=== PATIENT | male | born 1960 | race Caucasian/White ===

== ENCOUNTER 2021-07-13 07:03 | Day surgery (SDC) | payer OTHER ==
[~2021-07-13] VITALS: Ht 170.2 cm; Wt 73.0 kg
[2021-07-13 07:25] VITALS: BP 119/65
--- NOTE | 2021-07-13 07:25 | NUR ---
PATIENT AMBULATORY TO ROOM 277 WITH STEADY GAIT ACCOMPANIED BY ANR NURSE SEAN. PATIENT IS ALERTAND OREINTED X3. ADMISSION ASSESSMENT COMPLETED AT THIS TIME. VS OBTAINED. DR OSBORNE NOTIFIED. ORDERSRECEIVED. IV OBTAINED LABS OBTAINED AND SENT TO LAB FOR REFERENCE. ORIENTED TO ROOM AND UNIT. CALLLIGHT IN REACH. WILL CONTINUE TO MONITOR.
[2021-07-13 07:33] VITALS: BP 119/65
[2021-07-13] MEDS ORDERED: NORVASC10 M1 PO (07:44)
[2021-07-13] MEDS ORDERED: ENALAPRIL10 MG PO (07:44)
[2021-07-13] MEDS ORDERED: GLIPIZIDE ER5 MG PO (07:45)
[2021-07-13] MEDS ORDERED: METFORMIN500 M2 PO (07:45)
[2021-07-13 08:41] LABS: HEMATOCRIT 38.6 % (39.0-50.0); HEMOGLOBIN 12.9 g/dl (14.0-18.0); IMMATURE GRANULOCYTES 0.2 % (0.0-5.0); MEAN CELL VOLUME 83.4 fL CALC (80.0-100.0); MEAN CORPUSCULAR HGB 27.9 pG CALC (26.0-32.0); MEAN CORPUSCULAR HGB CONC 33.4 g/dL CAL (32.0-36.0); NEUT# 3.72 thou/uL (1.82-7.42); RED BLOOD COUNT 4.63 mill/uL (4.70-6.10); RED CELL DISTRI WIDTH 12.7 % (11.5-15.5)
[2021-07-13 09:01] LABS: ALKALINE PHOSPHATASE 73 u/l (38-126); ANION GAP 14 (6-22 (CALC)); BILIRUBIN, TOTAL 0.8 mg/dL (0.0-1.4); BUN 12 mg/dL (9-20); BUN/CREATININE RATIO 15 (12-20 (CALC)); CARBON DIOXIDE 27 mmol/l (22-30); CHLORIDE 90 mmol/l (95-108); CREATININE 0.8 mg/dL (0.7-1.3); GFR > 60 ML/MIN (>=60 (CALC)); GFR FOR AFR.AMER. > 60 ML/MIN (>=60 (CALC)); POTASSIUM 4.6 mmol/l (3.5-5.1); SGOT/AST 33 u/l (17-59); SODIUM 127 mmol/l (137-146); TOTAL PROTEIN 8.9 g/dL (6.3-8.2)
[2021-07-13 10:00] VITALS: BP 106/61
--- NOTE | 2021-07-13 11:45 | NUR ---
PATIENT TO ANR PROCEDURE AT THIS TIME VIA BED.
[2021-07-13 19:00] VITALS: BP 116/59
--- NOTE | 2021-07-13 20:16 | NUR ---
REPORT GIVEN BY TAMARA. PATIENT RESTING WITH EYES CLOSED. RESP EVEN AND UNLABORED. NO S/S OFDSITRESS NOTED. FALL AND SAFTEY PRECAUTIONS IN PLACE. IV INFUSING KVO FLUIDS. ANR STAFF DISCUSSED PLAN OF CARE. PATIENT INFORMED TO CALL WITH ANY QUESTIONS OR CONCERNS.
--- NOTE | 2021-07-13 21:59 | NUR ---
PATIENT ROLLING FROM SIDE TO SIDE, UNABLE TO STAY STILL. ATTEMPTING TO ROLL OVER BED RAIL. ATIVAN GIVEN FOR AGITATION. PM MEDCATIONS GIVEN WHOLE IN APPLESAUCE WITHOUT PROBLEMS. FALL AND SAFTEY PRECAUTIONS IN PLACE.
--- NOTE | 2021-07-13 22:13 | NUR ---
PATIENT HAD A LARGE SOFT BM.
--- NOTE | 2021-07-14 05:23 | NUR ---
PATIENT TOOK PILLS WHOLE IN APPLESAUCE. PATIENT IS ABLE TO FOLLOW COMMANDS. RESPONDS TO HIS NAME. STATE WHEN HE NEEDS TO VOID.
[2021-07-14 06:25] LABS: ALBUMIN 4.3 g/dL (3.2-5.0); ALKALINE PHOSPHATASE 66 u/l (38-126); BILIRUBIN, TOTAL 0.9 mg/dL (0.0-1.4); BUN 14 mg/dL (9-20); BUN/CREATININE RATIO 22 (12-20 (CALC)); CHLORIDE 95 mmol/l (95-108); CREATININE 0.6 mg/dL (0.7-1.3); GFR > 60 ML/MIN (>=60 (CALC)); GFR FOR AFR.AMER. > 60 ML/MIN (>=60 (CALC)); MAGNESIUM 1.4 mg/dL (1.6-2.3); POTASSIUM 3.9 mmol/l (3.5-5.1); SGOT/AST 29 u/l (17-59); SODIUM 129 mmol/l (137-146); TOTAL PROTEIN 7.5 g/dL (6.3-8.2)
[2021-07-14 06:37] LABS: ANION GAP 19 (6-22 (CALC)); CARBON DIOXIDE 19 mmol/l (22-30)
--- NOTE | 2021-07-14 06:45 | NUR ---
REPORT RECEIVED FROM TRUE DENT. CARE ASSUMED
[2021-07-14 07:30] VITALS: BP 103/49
--- NOTE | 2021-07-14 07:30 | NUR ---
PATIENT RESTING IN BED WITH EYES CLOSED. AROUSES EASILY TO VERBAL STIMULI. SHIFT ASSESSMENT COMPLETED AT THIS TIME. IV PATENT X2. CALL LIGHT IN REACH. WILL CONTINUE TO MONITOR.
[2021-07-14 08:39] VITALS: BP 103/49
--- NOTE | 2021-07-14 12:00 | NUR ---
PATIENT ASSISTED UP TO SHOWER AT THIS TIME.
--- NOTE | 2021-07-14 13:00 | NUR ---
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
--- NOTE | 2021-07-14 16:15 | NUR ---
Discharge instructions given. Patient verbalizes understanding of same. Discharged in stable condition via Wheelchair to Home with staff. All belongings sent with pt.
== END 2021-07-14 16:15 | disposition home or self-care (01) | DRG 897 ==
LOC: ANR 07:03 → MS2 07:08 → ANR 16:23
PROVIDERS: ATTEND Anesthesiology
DX: F11.20 Opioid dependence, uncomplicated (principal)
CPT/HCPCS: J2060; J2354